=== PATIENT | female | born 1990 | race Caucasian/White ===

== ENCOUNTER 2023-07-22 17:04 | Emergency (ER) | payer MEDICAID ==
[~2023-07-22] VITALS: Ht 157.5 cm; Wt 70.3 kg
[~2023-07-22 17:04] MED LIST: HYDR-4383 PO
[2023-07-22 17:37] VITALS: BP 128/72; PULSE 77; RESP 18; TEMP 97.1; O2SAT 98
[2023-07-22] MEDS ORDERED: NAPR-56 PO (17:42)
[2023-07-22] MEDS ORDERED: DOXY-224 PO (17:42)
== END 2023-07-22 18:09 | disposition home or self-care (01) ==
LOC: ER 17:05
DX: K04.7 Periapical abscess without sinus (principal); Z79.899 Other long term (current) drug therapy
CPT/HCPCS: 99283